=== PATIENT | male | born 1960 | race African-American/Black ===

== ENCOUNTER 2019-09-12 21:53 | Inpatient (IN) | payer MEDICAID ==
[~2019-09-12] VITALS: Ht 193 cm; Wt 75.7 kg
[2019-09-12] MEDS ORDERED: NITROGLYCERIN OINT 1GM/INCH UDPKT TD ONE (23:15)
[2019-09-12 23:52] LABS: BASOPHILS % 0.4 % (0.0-2.0); HEMATOCRIT. 41.4 % (42.0-52.0); HEMOGLOBIN. 13.7 g/dL (14.0-18.0); LYMPHOCYTES % 24.6 % (20.0-50.0); MEAN CORPUSCULAR VOLUME 102.8 fL (80.0-94.0); MEAN PLATELET VOLUME 9.4 fl (7.4-10.4); MONOCYTES % 5.1 % (2.0-8.0); NEUTROPHILS % 69.9 % (40.0-76.0); PLATELET 122 x1000/uL (130-400); RED BLOOD CELL COUNT 4.03 mill/uL (4.7-6.1); RED CELL DISTRIBUTION WIDTH 16.3 % (11.6-14.6)
[2019-09-12 23:55] LABS: CHLORIDE 105 mEq/L (98-107)
[2019-09-13] MEDS ORDERED: FUROSEMIDE 40MG/4ML VIAL IVP ONE (04:45)
[2019-09-13] MEDS ORDERED: ONDANSETRON HCL 4MG/2ML INJ IV PRN (08:30)
[2019-09-13] MEDS: ASPIRIN 81MG TABLET PO SCH (09:13)
[2019-09-13] MEDS: FUROSEMIDE 40MG/4ML VIAL IVP SCH (11:02)
[2019-09-13 12:28] LABS: HEPATITIS B SURFACE ANTIGEN NEGATIVE
[2019-09-13 12:56] LABS: HEPATITIS A AB IGM NEGATIVE (NEGATIVE)
[2019-09-13 13:35] LABS: CANNABINOID URINE SCREEN PRESUMTIVE POSITIVE (NEGATIVE)
[2019-09-13 13:36] LABS: *AMPHETAMINES SCREEN URINE NEGATIVE (NEGATIVE)
[2019-09-13 13:40] LABS: METHADONE URINE SCREEN NEGATIVE (NEGATIVE); OPIATES URINE SCREEN NEGATIVE (NEGATIVE); PHENCYCLIDINE URINE SCREEN NEGATIVE (NEGATIVE)
[2019-09-13 13:42] LABS: *BENZODIAZEPINES SCREEN URINE NEGATIVE (NEGATIVE)
[2019-09-13 13:44] LABS: *BARBITURATES SCREEN URINE NEGATIVE (NEGATIVE); *COCAINE SCREEN URINE PRESUMTIVE POSITIVE (NEGATIVE)
[2019-09-13 16:30] VITALS: BP 126/81
[2019-09-13] MEDS: LOSARTAN POTASSIUM 50 MG TABLET PO SCH (17:00)
[2019-09-13 20:00] VITALS: BP 90/60
[2019-09-13] MEDS: ENOXAPARIN 40MG/0.4ML SYR SUBCUT SCH (21:43)
[2019-09-13] MEDS ORDERED: IOHEXOL-350 100 ML BOTTLE ONE (22:46)
[2019-09-14] VITALS (7 sets, daily range): BP systolic 93–136; BP diastolic 49–76
[2019-09-14] MEDS: LEVOTHYROXINE SODIUM 50MCG TABLET PO SCH (06:38)
[2019-09-14 08:27] LABS: BASOPHILS % 0.6 % (0.0-2.0); EOSINOPHILS % 0.1 % (0.0-5.0); HEMATOCRIT. 39.5 % (42.0-52.0); HEMOGLOBIN. 13.1 g/dL (14.0-18.0); LYMPHOCYTES % 20.6 % (20.0-50.0); MEAN PLATELET VOLUME 9.9 fl (7.4-10.4); MONOCYTES % 8.1 % (2.0-8.0); NEUTROPHILS % 70.6 % (40.0-76.0); PLATELET 105 x1000/uL (130-400); RED BLOOD CELL COUNT 3.84 mill/uL (4.7-6.1); RED CELL DISTRIBUTION WIDTH 16.5 % (11.6-14.6)
[2019-09-14 08:35] LABS: CHLORIDE 102 mEq/L (98-107)
[2019-09-14] MEDS: ASPIRIN 81MG TABLET PO SCH (09:36)
[2019-09-14] MEDS: LOSARTAN POTASSIUM 50 MG TABLET PO SCH (09:36)
[2019-09-14] MEDS: FUROSEMIDE 40MG/4ML VIAL IVP SCH ×2 (09:36→17:00)
[2019-09-14] MEDS: IPRATROPIUM/ALBUTEROL 0.5-3(2.5)MG/3ML NEB HHN SCH ×2 (16:00→20:05)
[2019-09-14] MEDS: ENOXAPARIN 40MG/0.4ML SYR SUBCUT SCH (20:57)
[2019-09-15] VITALS: BP 120/98
[2019-09-15] MEDS: IPRATROPIUM/ALBUTEROL 0.5-3(2.5)MG/3ML NEB HHN SCH ×6 (00:07→20:38)
[2019-09-15] MEDS ORDERED: IPRATROPIUM/ALBUTEROL 0.5-3(2.5)MG/3ML NEB HHN PRN (01:45)
[2019-09-15 02:44] LABS: BG BASE EXCESS 0.9 mmol/L (-2.0-2.0); BG CARBOXYHEMOGLOBIN 0.3 % (0.5-1.5); BG DEOXYHEMOGLOBIN 17.8 % (0.0-5.0); BG FRACTION INSPIRED OXYGEN 21; BG HCO3 ACT 25.8 mmol/L (22.0-26.0); BG METHEMOGLOBIN 0.2 % (0.0-1.5); BG OXYGEN SATURATION 82.1 % (92.0-98.5); BG OXYHEMOGLOBIN 81.7 % (94.0-97.0); BG PCO2 42.2 mmHg (35.0-45.0); BG PH 7.404 (7.350-7.450); BG PO2 52.2 mmHg (75.0-100.0); BG SAMPLE SITE RIGHT RADIAL; BG TOTAL HEMOGLOBIN 13.6 g/dL (12.0-18.0); BG VENT MODE ROOM AIR
[2019-09-15 04:00] VITALS: BP 108/68
[2019-09-15] MEDS: LEVOTHYROXINE SODIUM 50MCG TABLET PO SCH (05:11)
[2019-09-15 06:06] LABS: CHLORIDE 100 mEq/L (98-107)
[2019-09-15 06:42] LABS: BASOPHILS % 0.3 % (0.0-2.0); EOSINOPHILS % 0.1 % (0.0-5.0); HEMATOCRIT. 38.1 % (42.0-52.0); HEMOGLOBIN. 12.8 g/dL (14.0-18.0); LYMPHOCYTES % 15.6 % (20.0-50.0); MEAN CORPUSCULAR HEMOGLOBIN 33.9 pg (28.0-32.0); MEAN CORPUSCULAR VOLUME 101.3 fL (80.0-94.0); MEAN PLATELET VOLUME 10.5 fl (7.4-10.4); MONOCYTES % 7.5 % (2.0-8.0); NEUTROPHILS % 76.5 % (40.0-76.0); PLATELET 126 x1000/uL (130-400); RED BLOOD CELL COUNT 3.76 mill/uL (4.7-6.1); RED CELL DISTRIBUTION WIDTH 16.3 % (11.6-14.6)
[2019-09-15] MEDS: LOSARTAN POTASSIUM 25 MG TABLET PO SCH (09:00)
[2019-09-15] MEDS: FUROSEMIDE 40MG/4ML VIAL IVP SCH ×2 (09:03→17:00)
[2019-09-15] MEDS: ACETAMINOPHEN 325MG TABLET PO PRN (09:03)
[2019-09-15] MEDS: ASPIRIN 81MG TABLET PO SCH (09:03)
[2019-09-15 10:25] VITALS: BP 109/72
[2019-09-15 12:00] VITALS: BP 104/70
[2019-09-15 16:39] VITALS: BP 114/68
[2019-09-15 20:00] VITALS: BP 110/78
[2019-09-15] MEDS: ENOXAPARIN 40MG/0.4ML SYR SUBCUT SCH (21:24)
[2019-09-16] VITALS: BP 118/64
[2019-09-16] MEDS: IPRATROPIUM/ALBUTEROL 0.5-3(2.5)MG/3ML NEB HHN SCH ×4 (01:34→22:39)
[2019-09-16 04:00] VITALS: BP 124/72
[2019-09-16] MEDS: LEVOTHYROXINE SODIUM 50MCG TABLET PO SCH (04:07)
[2019-09-16 08:00] VITALS: BP 103/75
[2019-09-16] MEDS: FUROSEMIDE 40MG/4ML VIAL IVP SCH ×2 (09:00→09:21)
[2019-09-16] MEDS: LOSARTAN POTASSIUM 25 MG TABLET PO SCH (09:00)
[2019-09-16] MEDS: ASPIRIN 81MG TABLET PO SCH (09:21)
[2019-09-16 12:00] VITALS: BP 122/74
[2019-09-16 16:00] VITALS: BP 126/86
[2019-09-16 20:00] VITALS: BP 120/88
[2019-09-16] MEDS: ENOXAPARIN 40MG/0.4ML SYR SUBCUT SCH (20:10)
[2019-09-16] MEDS: FUROSEMIDE 40MG TABLET PO SCH (20:11)
[2019-09-16] MEDS: LORAZEPAM 2MG/ML CPJ IV PRN (21:35)
[2019-09-16] MEDS: BUDESONIDE 0.5MG/2ML NEB HHN SCH (22:39)
[2019-09-16] MEDS ORDERED: MORPHINE SULFATE 2 MG/ML CPJ (NOT FOR IM USE) IV PRN (22:45)
[2019-09-17] VITALS: BP 130/85
[2019-09-17] MEDS: IPRATROPIUM/ALBUTEROL 0.5-3(2.5)MG/3ML NEB HHN SCH ×7 (00:26→21:44)
[2019-09-17 04:00] VITALS: BP 120/80
[2019-09-17] MEDS: LORAZEPAM 2MG/ML CPJ IV PRN (06:00)
[2019-09-17 08:29] VITALS: BP 118/84
[2019-09-17] MEDS: BUDESONIDE 0.5MG/2ML NEB HHN SCH ×3 (08:30→21:44)
[2019-09-17] MEDS: LOSARTAN POTASSIUM 25 MG TABLET PO SCH (08:32)
[2019-09-17] MEDS: FUROSEMIDE 40MG TABLET PO SCH ×2 (08:32→21:23)
[2019-09-17] MEDS: LEVOTHYROXINE SODIUM 50MCG TABLET PO SCH (08:32)
[2019-09-17] MEDS: ASPIRIN 81MG TABLET PO SCH (08:32)
[2019-09-17 12:30] VITALS: BP 122/84
[2019-09-17 16:00] VITALS: BP 119/81
[2019-09-17 20:00] VITALS: BP 115/82
[2019-09-17] MEDS: ENOXAPARIN 40MG/0.4ML SYR SUBCUT SCH (21:23)
[2019-09-17] MEDS ORDERED: LORAZEPAM 2MG/ML CPJ IV PRN (21:45)
[2019-09-18] VITALS: BP_SYST 105; BP_SYST 120; BP_DIAS 65; BP_DIAS 80
[2019-09-18] MEDS: IPRATROPIUM/ALBUTEROL 0.5-3(2.5)MG/3ML NEB HHN SCH ×5 (01:40→20:25)
[2019-09-18 04:00] VITALS: BP 120/75
[2019-09-18 07:14] LABS: BASOPHILS % 0.3 % (0.0-2.0); EOSINOPHILS % 0.2 % (0.0-5.0); HEMATOCRIT. 39.4 % (42.0-52.0); HEMOGLOBIN. 13.2 g/dL (14.0-18.0); LYMPHOCYTES % 12.1 % (20.0-50.0); MEAN CORPUSCULAR HEMOGLOBIN 33.8 pg (28.0-32.0); MEAN CORPUSCULAR VOLUME 100.8 fL (80.0-94.0); MEAN PLATELET VOLUME 10.6 fl (7.4-10.4); MONOCYTES % 11.7 % (2.0-8.0); NEUTROPHILS % 75.7 % (40.0-76.0); PLATELET 134 x1000/uL (130-400); RED BLOOD CELL COUNT 3.91 mill/uL (4.7-6.1); RED CELL DISTRIBUTION WIDTH 16.6 % (11.6-14.6)
[2019-09-18] MEDS: LEVOTHYROXINE SODIUM 50MCG TABLET PO SCH (07:20)
[2019-09-18 08:00] VITALS: BP 113/67
[2019-09-18 08:02] LABS: CHLORIDE 104 mEq/L (98-107)
[2019-09-18] MEDS: FUROSEMIDE 40MG TABLET PO SCH ×2 (09:00→21:07)
[2019-09-18] MEDS: ASPIRIN 81MG TABLET PO SCH (09:00)
[2019-09-18] MEDS: LOSARTAN POTASSIUM 25 MG TABLET PO SCH (09:00)
[2019-09-18] MEDS: BUDESONIDE 0.5MG/2ML NEB HHN SCH ×2 (09:45→20:25)
[2019-09-18 12:00] VITALS: BP 109/81
[2019-09-18 13:34] LABS: BG CARBOXYHEMOGLOBIN 0.8 % (0.5-1.5); BG FRACTION INSPIRED OXYGEN 28; BG HCO3 ACT 26.5 mmol/L (22.0-26.0); BG OXYHEMOGLOBIN 95.2 % (94.0-97.0); BG PCO2 33.3 mmHg (35.0-45.0); BG PH 7.519 (7.350-7.450); BG PO2 84.4 mmHg (75.0-100.0); BG SAMPLE SITE RIGHT RADIAL; BG TOTAL HEMOGLOBIN 14.1 g/dL (12.0-18.0); BG VENT MODE NASAL CANNULA
[2019-09-18 16:00] VITALS: BP 113/80
[2019-09-18 20:00] VITALS: BP 118/83
[2019-09-18] MEDS: ENOXAPARIN 40MG/0.4ML SYR SUBCUT SCH (21:07)
[2019-09-18] MEDS: CARVEDILOL 6.25 MG TABLET PO SCH (21:12)
[2019-09-19] VITALS: BP 110/66
[2019-09-19] MEDS: IPRATROPIUM/ALBUTEROL 0.5-3(2.5)MG/3ML NEB HHN SCH ×6 (00:35→20:40)
[2019-09-19 04:30] VITALS: BP 107/70
[2019-09-19] MEDS: LEVOTHYROXINE SODIUM 50MCG TABLET PO SCH (06:18)
[2019-09-19 08:00] VITALS: BP 100/71
[2019-09-19] MEDS: LOSARTAN POTASSIUM 25 MG TABLET PO SCH (09:00)
[2019-09-19] MEDS: CARVEDILOL 6.25 MG TABLET PO SCH ×2 (09:00→21:00)
[2019-09-19] MEDS: BUDESONIDE 0.5MG/2ML NEB HHN SCH ×2 (09:18→20:39)
[2019-09-19] MEDS: FUROSEMIDE 40MG TABLET PO SCH ×2 (09:35→21:23)
[2019-09-19] MEDS: ASPIRIN 81MG TABLET PO SCH (09:35)
[2019-09-19 12:00] VITALS: BP 110/84
[2019-09-19] MEDS: RISPERIDONE 1MG TABLET PO SCH (12:44)
[2019-09-19 16:00] VITALS: BP 110/72
[2019-09-19 20:00] VITALS: BP 105/71
[2019-09-19] MEDS: ENOXAPARIN 40MG/0.4ML SYR SUBCUT SCH (21:24)
[2019-09-20] VITALS: BP 104/75
[2019-09-20] MEDS: IPRATROPIUM/ALBUTEROL 0.5-3(2.5)MG/3ML NEB HHN SCH ×6 (00:38→19:52)
[2019-09-20 04:00] VITALS: BP 106/85
[2019-09-20] MEDS: LEVOTHYROXINE SODIUM 50MCG TABLET PO SCH (06:39)
[2019-09-20 08:00] VITALS: BP 109/75
[2019-09-20] MEDS: CARVEDILOL 6.25 MG TABLET PO SCH ×3 (09:00→21:05)
[2019-09-20] MEDS: LOSARTAN POTASSIUM 25 MG TABLET PO SCH (09:00)
[2019-09-20] MEDS: ASPIRIN 81MG TABLET PO SCH (09:59)
[2019-09-20] MEDS: RISPERIDONE 1MG TABLET PO SCH ×3 (09:59→21:04)
[2019-09-20] MEDS: FUROSEMIDE 40MG TABLET PO SCH ×3 (09:59→21:04)
[2019-09-20 12:00] VITALS: BP 129/72
[2019-09-20] MEDS: ACETAMINOPHEN 325MG TABLET PO PRN (13:37)
[2019-09-20 16:00] VITALS: BP 164/55
[2019-09-20 20:00] VITALS: BP 113/88
[2019-09-20] MEDS: ENOXAPARIN 40MG/0.4ML SYR SUBCUT SCH (20:00)
[2019-09-21] VITALS: BP 96/65
[2019-09-21] MEDS: IPRATROPIUM/ALBUTEROL 0.5-3(2.5)MG/3ML NEB HHN SCH ×6 (00:08→19:47)
[2019-09-21 04:00] VITALS: BP 120/74
[2019-09-21] MEDS: LEVOTHYROXINE SODIUM 50MCG TABLET PO SCH (07:03)
[2019-09-21 07:19] LABS: CHLORIDE 104 mEq/L (98-107)
[2019-09-21 08:00] VITALS: BP 105/70
[2019-09-21] MEDS: LOSARTAN POTASSIUM 25 MG TABLET PO SCH (09:00)
[2019-09-21] MEDS: CARVEDILOL 6.25 MG TABLET PO SCH ×2 (09:00→21:00)
[2019-09-21] MEDS: RISPERIDONE 1MG TABLET PO SCH ×2 (09:55→20:56)
[2019-09-21] MEDS: ASPIRIN 81MG TABLET PO SCH (09:58)
[2019-09-21] MEDS ORDERED: POTASSIUM CHLORIDE INJ 40 MEQ in DEXT 5% WATER 250 ML IV SCH (11:00)
[2019-09-21 12:00] VITALS: BP 97/68
[2019-09-21] MEDS: FUROSEMIDE 40MG TABLET PO SCH ×2 (12:35→21:00)
[2019-09-21 16:00] VITALS: BP 103/63
[2019-09-21 20:00] VITALS: BP 97/77
[2019-09-21] MEDS: ENOXAPARIN 40MG/0.4ML SYR SUBCUT SCH (20:55)
[2019-09-22] VITALS: BP 105/86
[2019-09-22] MEDS: IPRATROPIUM/ALBUTEROL 0.5-3(2.5)MG/3ML NEB HHN SCH ×6 (00:06→20:17)
[2019-09-22 04:00] VITALS: BP 100/66
[2019-09-22] MEDS: LEVOTHYROXINE SODIUM 50MCG TABLET PO SCH (06:42)
[2019-09-22 07:01] LABS: CHLORIDE 101 mEq/L (98-107)
[2019-09-22 07:29] LABS: VITAMIN B12 SERUM >2000 pg/mL pg/mL (211-911)
[2019-09-22 08:00] VITALS: BP 103/74
[2019-09-22] MEDS: LOSARTAN POTASSIUM 25 MG TABLET PO SCH (08:45)
[2019-09-22] MEDS: CARVEDILOL 6.25 MG TABLET PO SCH ×2 (08:56→20:50)
[2019-09-22] MEDS: FUROSEMIDE 40MG TABLET PO SCH ×2 (08:57→20:50)
[2019-09-22] MEDS: THIAMINE HCL 100MG TABLET PO SCH (09:07)
[2019-09-22] MEDS: RISPERIDONE 1MG TABLET PO SCH ×2 (09:07→20:49)
[2019-09-22] MEDS: ASPIRIN 81MG TABLET PO SCH (09:07)
[2019-09-22] MEDS: POTASSIUM CHLORIDE 10MEQ TABLET SR PO SCH (09:11)
[2019-09-22 12:00] VITALS: BP 93/65
[2019-09-22 16:00] VITALS: BP 100/72
[2019-09-22 20:00] VITALS: BP 98/70
[2019-09-22] MEDS ORDERED: POTASSIUM CHLORIDE INJ 40 MEQ in DEXT 5% WATER 250 ML IV SCH (20:00)
[2019-09-22] MEDS: ENOXAPARIN 40MG/0.4ML SYR SUBCUT SCH (20:49)
[2019-09-23] VITALS: BP 103/73
[2019-09-23] MEDS: IPRATROPIUM/ALBUTEROL 0.5-3(2.5)MG/3ML NEB HHN SCH ×3 (00:35→20:00)
[2019-09-23 04:00] VITALS: BP 111/79
[2019-09-23 05:09] LABS: HIV SCREEN 4G Non Reactive (Non Reactive)
[2019-09-23] MEDS: LEVOTHYROXINE SODIUM 50MCG TABLET PO SCH (06:36)
[2019-09-23 08:00] VITALS: BP 102/65
[2019-09-23 08:45] LABS: CHLORIDE 101 mEq/L (98-107)
[2019-09-23] MEDS: CARVEDILOL 6.25 MG TABLET PO SCH ×2 (09:00→20:59)
[2019-09-23] MEDS: LOSARTAN POTASSIUM 25 MG TABLET PO SCH (09:00)
[2019-09-23] MEDS: ENOXAPARIN 40MG/0.4ML SYR SUBCUT SCH (09:52)
[2019-09-23] MEDS: THIAMINE HCL 100MG TABLET PO SCH (09:52)
[2019-09-23] MEDS: FUROSEMIDE 40MG TABLET PO SCH ×2 (09:53→20:58)
[2019-09-23] MEDS: RISPERIDONE 1MG TABLET PO SCH ×2 (09:53→20:58)
[2019-09-23] MEDS: ASPIRIN 81MG TABLET PO SCH (09:53)
[2019-09-23] MEDS: POTASSIUM CHLORIDE 10MEQ TABLET SR PO SCH (09:56)
[2019-09-23 12:00] VITALS: BP 98/77
[2019-09-23 16:00] VITALS: BP 98/69
[2019-09-23 20:00] VITALS: BP 125/77
[2019-09-24] VITALS: BP 104/58
[2019-09-24] MEDS: IPRATROPIUM/ALBUTEROL 0.5-3(2.5)MG/3ML NEB HHN SCH ×6 (00:25→22:00)
[2019-09-24 04:00] VITALS: BP 116/57
[2019-09-24] MEDS: LEVOTHYROXINE SODIUM 50MCG TABLET PO SCH (07:40)
[2019-09-24] MEDS: LOSARTAN POTASSIUM 25 MG TABLET PO SCH (09:00)
[2019-09-24] MEDS: CARVEDILOL 6.25 MG TABLET PO SCH ×2 (09:00→20:37)
[2019-09-24] MEDS: ASPIRIN 81MG TABLET PO SCH (11:09)
[2019-09-24] MEDS: RISPERIDONE 1MG TABLET PO SCH (11:09)
[2019-09-24] MEDS: THIAMINE HCL 100MG TABLET PO SCH (11:09)
[2019-09-24 12:00] VITALS: BP 91/73
[2019-09-24] MEDS: FUROSEMIDE 40MG TABLET PO SCH (15:00)
[2019-09-24 20:00] VITALS: BP 91/49
[2019-09-24] MEDS: RISPERIDONE 0.5MG TABLET PO SCH (20:38)
[2019-09-24] MEDS: ENOXAPARIN 40MG/0.4ML SYR SUBCUT SCH (20:38)
[2019-09-25] VITALS: BP 104/51
[2019-09-25] MEDS: IPRATROPIUM/ALBUTEROL 0.5-3(2.5)MG/3ML NEB HHN SCH ×5 (02:24→15:18)
[2019-09-25 04:00] VITALS: BP 120/84
[2019-09-25] MEDS: LEVOTHYROXINE SODIUM 50MCG TABLET PO SCH (06:26)
[2019-09-25 06:43] LABS: BASOPHILS % 0.2 % (0.0-2.0); HEMATOCRIT. 36.9 % (42.0-52.0); HEMOGLOBIN. 12.8 g/dL (14.0-18.0); LYMPHOCYTES % 8.8 % (20.0-50.0); MEAN CORPUSCULAR HEMOGLOBIN 34.5 pg (28.0-32.0); MEAN CORPUSCULAR VOLUME 99.2 fL (80.0-94.0); MEAN PLATELET VOLUME 11.5 fl (7.4-10.4); MONOCYTES % 5.2 % (2.0-8.0); NEUTROPHILS % 85.8 % (40.0-76.0); PLATELET 61 x1000/uL (130-400); RED BLOOD CELL COUNT 3.72 mill/uL (4.7-6.1); RED CELL DISTRIBUTION WIDTH 16.7 % (11.6-14.6)
[2019-09-25 07:17] LABS: CHLORIDE 100 mEq/L (98-107)
[2019-09-25 08:00] VITALS: BP 121/93
[2019-09-25] MEDS: LOSARTAN POTASSIUM 25 MG TABLET PO SCH (09:08)
[2019-09-25] MEDS: FUROSEMIDE 40MG TABLET PO SCH (09:08)
[2019-09-25] MEDS: ASPIRIN 81MG TABLET PO SCH (09:08)
[2019-09-25] MEDS: THIAMINE HCL 100MG TABLET PO SCH (09:08)
[2019-09-25] MEDS: CARVEDILOL 6.25 MG TABLET PO SCH ×2 (09:09→21:26)
[2019-09-25] MEDS: RISPERIDONE 0.5MG TABLET PO SCH ×2 (09:10→21:26)
[2019-09-25 12:00] VITALS: BP 83/93
[2019-09-25 16:00] VITALS: BP 91/59
[2019-09-25 20:00] VITALS: BP 116/68
[2019-09-26] VITALS (7 sets, daily range): BP systolic 71–120; BP diastolic 49–91
[2019-09-26] MEDS: LEVOTHYROXINE SODIUM 50MCG TABLET PO SCH (06:40)
[2019-09-26] MEDS: FUROSEMIDE 40MG TABLET PO SCH (08:26)
[2019-09-26] MEDS: RISPERIDONE 0.5MG TABLET PO SCH ×2 (08:26→21:31)
[2019-09-26] MEDS: THIAMINE HCL 100MG TABLET PO SCH (08:26)
[2019-09-26] MEDS: LOSARTAN POTASSIUM 25 MG TABLET PO SCH (08:27)
[2019-09-26] MEDS: CARVEDILOL 6.25 MG TABLET PO SCH ×2 (08:27→21:00)
[2019-09-26] MEDS: IPRATROPIUM/ALBUTEROL 0.5-3(2.5)MG/3ML NEB HHN SCH ×4 (10:00→21:02)
[2019-09-27] VITALS: BP 80/51
[2019-09-27] MEDS: IPRATROPIUM/ALBUTEROL 0.5-3(2.5)MG/3ML NEB HHN SCH ×4 (00:23→15:51)
[2019-09-27 04:00] VITALS: BP 90/53
[2019-09-27] MEDS: LEVOTHYROXINE SODIUM 50MCG TABLET PO SCH (06:22)
[2019-09-27 07:56] LABS: CHLORIDE 104 mEq/L (98-107)
[2019-09-27 08:00] VITALS: BP 76/45
[2019-09-27] MEDS: FUROSEMIDE 40MG TABLET PO SCH (09:00)
[2019-09-27] MEDS: LOSARTAN POTASSIUM 25 MG TABLET PO SCH (09:00)
[2019-09-27] MEDS: CARVEDILOL 6.25 MG TABLET PO SCH (09:00)
[2019-09-27] MEDS: THIAMINE HCL 100MG TABLET PO SCH (09:54)
[2019-09-27] MEDS: RISPERIDONE 0.5MG TABLET PO SCH ×2 (09:54→21:06)
[2019-09-27] MEDS ORDERED: POTASSIUM CHLORIDE 20MEQ TABLET SR PO SCH (11:00)
[2019-09-27] MEDS: MIDODRINE HCL 5MG TABLET PO SCH ×2 (11:27→17:12)
[2019-09-27 12:00] VITALS: BP 77/46
[2019-09-27] MEDS ORDERED: ALBUMIN HUMAN 12.5G/250ML (5%) IV NR (14:30)
[2019-09-27 16:00] VITALS: BP 80/34
[2019-09-27 20:00] VITALS: BP 75/45
[2019-09-28] VITALS (45 sets, daily range): BP systolic 70–127; BP diastolic 37–88
[2019-09-28] MEDS: LEVOTHYROXINE SODIUM 50MCG TABLET PO SCH (06:21)
[2019-09-28 06:39] LABS: HEMATOCRIT 38.1 % (42.0-52.0); MEAN CORPUSCULAR HEMOGLOBIN 34.2 pg (28.0-32.0); MEAN CORPUSCULAR VOLUME 100.3 fL (80.0-94.0); RED BLOOD CELL COUNT 3.79 mill/uL (4.7-6.1); RED CELL DISTRIBUTION WIDTH 17.4 % (11.6-14.6)
[2019-09-28 06:40] LABS: INR 2.3; PROTHROMBIN TIME 24.8 sec (9.6-11.0)
[2019-09-28 07:58] LABS: FOLIC ACID (FOLATE) SERUM 7.4 ng/mL (>5.38)
[2019-09-28 07:58] LABS: CHLORIDE 106 mEq/L (98-107)
[2019-09-28] MEDS: IPRATROPIUM/ALBUTEROL 0.5-3(2.5)MG/3ML NEB HHN SCH ×4 (09:48→21:50)
[2019-09-28] MEDS: FUROSEMIDE 40MG TABLET PO SCH (09:50)
[2019-09-28] MEDS: MIDODRINE HCL 5MG TABLET PO SCH (09:50)
[2019-09-28] MEDS: RISPERIDONE 0.5MG TABLET PO SCH (09:50)
[2019-09-28] MEDS: THIAMINE HCL 100MG TABLET PO SCH (09:50)
[2019-09-28 11:51] LABS: PLATELET 42 x1000/uL (130-400)
[2019-09-28] MEDS ORDERED: SODIUM CHLORIDE 0.9% 250 ML IV SCH (12:45)
[2019-09-28] MEDS ORDERED: MIDODRINE HCL 5MG TABLET PO SCH (13:00)
[2019-09-28] MEDS ORDERED: NOREPINEPHRINE 4MG/250ML PMX 250 ML IV PRN (13:00)
[2019-09-28] MEDS ORDERED: SODIUM CHLORIDE 0.9% 1,000 ML IV SCH (14:00)
[2019-09-28] MEDS ORDERED: NOREPINEPHRINE 4 MG in DEXTROSE 5% WATER 250 ML IV PRN (15:30)
[2019-09-28] MEDS ORDERED: LEVOFLOXACIN 500MG PREMIX 100 ML IV SCH (15:30)
[2019-09-28] MEDS ORDERED: DOPAMINE 400MG/250ML PREMIX 250 ML IV PRN (20:45)
[2019-09-28 22:41] LABS: BG BASE EXCESS -1.2 mmol/L (-2.0-2.0); BG CARBOXYHEMOGLOBIN 0.8 % (0.5-1.5); BG DEOXYHEMOGLOBIN 13.4 % (0.0-5.0); BG FRACTION INSPIRED OXYGEN 60; BG HCO3 ACT 27.1 mmol/L (22.0-26.0); BG METHEMOGLOBIN 0.1 % (0.0-1.5); BG OXYGEN SATURATION 86.5 % (92.0-98.5); BG OXYHEMOGLOBIN 85.7 % (94.0-97.0); BG PCO2 61.4 mmHg (35.0-45.0); BG PH 7.263 (7.350-7.450); BG PO2 64.4 mmHg (75.0-100.0); BG SAMPLE SITE RIGHT RADIAL; BG TOTAL HEMOGLOBIN 14.4 g/dL (12.0-18.0); BG VENT MODE MASK - SIMPLE
[2019-09-28] MEDS ORDERED: ACETAMINOPHEN 650MG/20.3ML UDC PO PRN (23:15)
[2019-09-28] MEDS ORDERED: IPRATROPIUM/ALBUTEROL 0.5-3(2.5)MG/3ML NEB HHN PRN (23:15)
[2019-09-28] MEDS ORDERED: SODIUM CHLORIDE 0.9% 100 ML IV ONE (23:15)
[2019-09-28] MEDS ORDERED: ONDANSETRON HCL 4MG/2ML INJ IV PRN (23:15)
[2019-09-28] MEDS: DOPAMINE 400MG/250ML PREMIX 250 ML IV PRN (23:29)
[2019-09-29] VITALS (101 sets, daily range): BP systolic 59–154; BP diastolic 27–91
[2019-09-29] MEDS ORDERED: NOREPINEPHRINE 4 MG in DEXT 5% WATER 246 ML IV PRN ×2
[2019-09-29] MEDS: SODIUM CHLORIDE 0.9% 1,000 ML IV SCH ×2 (00:07→00:30)
[2019-09-29 00:12] LABS: BG BASE EXCESS -0.6 mmol/L (-2.0-2.0); BG BILEVEL POS AIRWAY PRESSURE 15/5; BG CARBOXYHEMOGLOBIN 0.7 % (0.5-1.5); BG DEOXYHEMOGLOBIN 8.5 % (0.0-5.0); BG FRACTION INSPIRED OXYGEN 80; BG METHEMOGLOBIN 0.2 % (0.0-1.5); BG OXYGEN SATURATION 91.4 % (92.0-98.5); BG OXYHEMOGLOBIN 90.6 % (94.0-97.0); BG PCO2 56.1 mmHg (35.0-45.0); BG PO2 72.6 mmHg (75.0-100.0); BG SAMPLE SITE RIGHT FEMORAL; BG TOTAL HEMOGLOBIN 14.8 g/dL (12.0-18.0); BG VENT MODE MASK - BIPAP
[2019-09-29] MEDS: IPRATROPIUM/ALBUTEROL 0.5-3(2.5)MG/3ML NEB HHN SCH ×5 (00:51→20:49)
[2019-09-29] MEDS: NOREPINEPHRINE 16 MG in DEXT 5% WATER 234 ML IV PRN ×3 (01:49→22:31)
[2019-09-29] MEDS: DOPAMINE 400MG/250ML PREMIX 250 ML IV PRN ×4 (03:02→20:17)
[2019-09-29 06:27] LABS: HEMATOCRIT. 46.1 % (42.0-52.0); HEMOGLOBIN. 15.9 g/dL (14.0-18.0); MEAN CORPUSCULAR HEMOGLOBIN 34.7 pg (28.0-32.0); MEAN CORPUSCULAR VOLUME 100.6 fL (80.0-94.0); RED BLOOD CELL COUNT 4.58 mill/uL (4.7-6.1); RED CELL DISTRIBUTION WIDTH 17.8 % (11.6-14.6)
[2019-09-29] MEDS: LEVOTHYROXINE SODIUM 50MCG TABLET PO SCH (06:36)
[2019-09-29 08:06] LABS: CHLORIDE 107 mEq/L (98-107); INR 2.2; PROTHROMBIN TIME 23.2 sec (9.6-11.0)
[2019-09-29] MEDS: MIDODRINE HCL 5MG TABLET PO SCH ×3 (09:00→22:37)
[2019-09-29] MEDS: THIAMINE HCL 100MG TABLET PO SCH (09:00)
[2019-09-29 09:20] LABS: NUCLEATED RED BLOOD CELLS 12 /100 WBC
[2019-09-29 09:21] LABS: PLATELET ESTIMATE DECREASED
[2019-09-29] MEDS ORDERED: SODIUM CHLORIDE 0.9% 1,000 ML IV SCH ×3 (10:00)
[2019-09-29 10:38] LABS: BG BASE EXCESS -3.3 mmol/L (-2.0-2.0); BG CARBOXYHEMOGLOBIN 0.5 % (0.5-1.5); BG DEOXYHEMOGLOBIN 5.1 % (0.0-5.0); BG FRACTION INSPIRED OXYGEN 80; BG METHEMOGLOBIN 0.3 % (0.0-1.5); BG OXYGEN SATURATION 94.9 % (92.0-98.5); BG OXYHEMOGLOBIN 94.1 % (94.0-97.0); BG PCO2 35.9 mmHg (35.0-45.0); BG PH 7.386 (7.350-7.450); BG SAMPLE SITE LEFT RADIAL; BG TOTAL HEMOGLOBIN 14.8 g/dL (12.0-18.0); BG VENT MODE MASK - BIPAP; BG VENT RATE 18 set
[2019-09-29] MEDS: PHENYLEPHRINE 40 MG in DEXT 5% WATER 246 ML IV PRN ×2 (11:12→17:02)
[2019-09-29] MEDS: CEFEPIME 1,000 MG in DEXTROSE 5% WATER 50 ML IV SCH ×2 (11:12→21:35)
[2019-09-29] MEDS: METRONIDAZOLE 500 MG PREMIX 100 ML IV SCH ×2 (12:33→20:24)
[2019-09-29] MEDS ORDERED: ETOMIDATE 2MG/ML 10ML VIAL IV ONE (13:15)
[2019-09-29] MEDS ORDERED: VECURONIUM BROMIDE 10 MG/VIAL IV ONE (13:15)
[2019-09-29] MEDS: FENTANYL CITRATE/PF 1,000 MCG in SODIUM CHLORIDE 0.9% 80 ML IV PRN (13:41)
[2019-09-29] MEDS: MIDAZOLAM HCL 50 MG in DEXTROSE 5% WATER 40 ML IV PRN (13:44)
[2019-09-29] MEDS ORDERED: LEVOFLOXACIN 500MG PREMIX 100 ML IV SCH (14:00)
[2019-09-29 15:01] LABS: BG BASE EXCESS -6.8 mmol/L (-2.0-2.0); BG CARBOXYHEMOGLOBIN 0.8 % (0.5-1.5); BG DEOXYHEMOGLOBIN 18.5 % (0.0-5.0); BG FRACTION INSPIRED OXYGEN 70; BG HCO3 ACT 20.5 mmol/L (22.0-26.0); BG METHEMOGLOBIN 0.2 % (0.0-1.5); BG OXYGEN SATURATION 81.3 % (92.0-98.5); BG OXYHEMOGLOBIN 80.5 % (94.0-97.0); BG PCO2 48.1 mmHg (35.0-45.0); BG PH 7.248 (7.350-7.450); BG PO2 53.3 mmHg (75.0-100.0); BG SAMPLE SITE LEFT FEMORAL; BG TIDAL VOLUME(mL) 500 mL; BG TOTAL HEMOGLOBIN 14.3 g/dL (12.0-18.0); BG VENT MODE VENT - A/C; BG VENT RATE 14 set
[2019-09-29] MEDS ORDERED: DOXYCYCLINE 100 MG in DEXT 5% WATER 100 ML IV SCH (16:00)
[2019-09-29] MEDS: DOXYCYCLINE HYCLATE 100MG CAPSULE PO SCH ×2 (16:19→22:41)
[2019-09-29 18:01] LABS: BG BASE EXCESS -3.5 mmol/L (-2.0-2.0); BG CARBOXYHEMOGLOBIN 0.7 % (0.5-1.5); BG DEOXYHEMOGLOBIN 12.6 % (0.0-5.0); BG FRACTION INSPIRED OXYGEN 100; BG METHEMOGLOBIN 0.2 % (0.0-1.5); BG OXYGEN SATURATION 87.3 % (92.0-98.5); BG OXYHEMOGLOBIN 86.5 % (94.0-97.0); BG PCO2 46.6 mmHg (35.0-45.0); BG PH 7.311 (7.350-7.450); BG PO2 60.1 mmHg (75.0-100.0); BG SAMPLE SITE LEFT RADIAL; BG TIDAL VOLUME(mL) 500 mL; BG TOTAL HEMOGLOBIN 14.6 g/dL (12.0-18.0); BG VENT MODE VENT - A/C; BG VENT RATE 20 set
[2019-09-29 18:15] LABS: CLARITY URINE TURBID (CLEAR); COLOR URINE DARK YELLOW (YELLOW); KETONES URINE NEGATIVE (NEGATIVE); LEUKOCYTE ESTERASE URINE 2+ (NEGATIVE); NITRITE URINE POSITIVE (NEGATIVE); OCCULT BLOOD URINE 3+ (NEGATIVE); PROTEIN URINE 2+ (NEGATIVE); SPECIFIC GRAVITY URINE 1.015 (1.005-1.030)
[2019-09-29] MEDS: VASOPRESSIN 10 UNIT in SODIUM CHLORIDE 0.9% 99.5 ML IV PRN ×2 (19:55→23:19)
[2019-09-29] MEDS: PHENYLEPHRINE 80 MG in DEXT 5% WATER 492 ML IV PRN (20:36)
[2019-09-29] MEDS ORDERED: NOREPINEPHRINE 32 MG in DEXT 5% WATER 468 ML IV PRN (20:38)
[2019-09-30] VITALS (98 sets, daily range): BP systolic 58–134; BP diastolic 24–77
[2019-09-30] MEDS: ACETYLCYSTEINE 100MG/ML 10% VIAL 4ML INH SCH ×3 (00:21→16:00)
[2019-09-30] MEDS: IPRATROPIUM/ALBUTEROL 0.5-3(2.5)MG/3ML NEB HHN SCH ×7 (00:21→21:00)
[2019-09-30] MEDS: DOPAMINE 400MG/250ML PREMIX 250 ML IV PRN ×4 (01:57→20:45)
[2019-09-30] MEDS: VASOPRESSIN 10 UNIT in SODIUM CHLORIDE 0.9% 99.5 ML IV PRN ×5 (02:14→22:04)
[2019-09-30] MEDS: METRONIDAZOLE 500 MG PREMIX 100 ML IV SCH ×3 (03:28→20:19)
[2019-09-30] MEDS: MIDODRINE HCL 5MG TABLET PO SCH ×3 (05:28→22:07)
[2019-09-30] MEDS: PHENYLEPHRINE 80 MG in DEXT 5% WATER 492 ML IV PRN ×3 (05:28→20:47)
[2019-09-30 06:35] LABS: HEMATOCRIT. 36.7 % (42.0-52.0); HEMOGLOBIN. 12.1 g/dL (14.0-18.0); MEAN CORPUSCULAR HEMOGLOBIN 33.8 pg (28.0-32.0); MEAN CORPUSCULAR VOLUME 102.7 fL (80.0-94.0); MEAN PLATELET VOLUME 11.6 fl (7.4-10.4); RED BLOOD CELL COUNT 3.57 mill/uL (4.7-6.1); RED CELL DISTRIBUTION WIDTH 17.7 % (11.6-14.6)
[2019-09-30 06:41] LABS: CHLORIDE 93 mEq/L (98-107)
[2019-09-30 06:42] LABS: INR 2.3; PROTHROMBIN TIME 24.9 sec (9.6-11.0)
[2019-09-30] MEDS: NOREPINEPHRINE 16 MG in DEXT 5% WATER 234 ML IV PRN (07:37)
[2019-09-30] MEDS ORDERED: BLOOD SUGAR DIAGNOSTIC STRIP TEST SCH (07:45)
[2019-09-30] MEDS: INSULIN LISPRO 100 UNITS/ML SUBCUT SCH ×4 (08:00→21:00)
[2019-09-30 08:14] LABS: NUCLEATED RED BLOOD CELLS 19 /100 WBC
[2019-09-30 08:15] LABS: PLATELET ESTIMATE MARKEDLY DECREASED
[2019-09-30] MEDS: PANTOPRAZOLE SODIUM 40 MG/VIAL IV SCH (08:15)
[2019-09-30] MEDS: CEFEPIME 1,000 MG in DEXTROSE 5% WATER 50 ML IV SCH ×2 (08:15→20:19)
[2019-09-30] MEDS: THIAMINE HCL 100MG TABLET PO SCH (08:15)
[2019-09-30] MEDS: DOXYCYCLINE HYCLATE 100MG CAPSULE PO SCH (08:15)
[2019-09-30] MEDS: LEVOTHYROXINE SODIUM 50MCG TABLET PO SCH (08:15)
[2019-09-30 08:16] LABS: PLATELET 28 x1000/uL (130-400)
[2019-09-30 08:32] LABS: BG CARBOXYHEMOGLOBIN 0.7 % (0.5-1.5); BG DEOXYHEMOGLOBIN 14.9 % (0.0-5.0); BG FRACTION INSPIRED OXYGEN 100; BG HCO3 ACT 21.2 mmol/L (22.0-26.0); BG OXYHEMOGLOBIN 84.4 % (94.0-97.0); BG PCO2 43.4 mmHg (35.0-45.0); BG PH 7.306 (7.350-7.450); BG SAMPLE SITE LEFT BRACHIAL; BG TIDAL VOLUME(mL) 500 mL; BG TOTAL HEMOGLOBIN 13.6 g/dL (12.0-18.0); BG VENT MODE VENT - A/C; BG VENT RATE 22 set
[2019-09-30] MEDS: BLOOD SUGAR DIAGNOSTIC STRIP TEST SCH ×4 (08:53→21:53)
[2019-09-30] MEDS: SODIUM CHLORIDE 0.9% 1,000 ML IV SCH (12:35)
[2019-09-30] MEDS: MIDAZOLAM HCL 50 MG in DEXTROSE 5% WATER 40 ML IV PRN (13:45)
[2019-09-30] MEDS ORDERED: VANCOMYCIN 1500MG in DEXTROSE 5% WATER 250ML IV NR (16:00)
[2019-09-30] MEDS: NOREPINEPHRINE 32 MG in DEXT 5% WATER 468 ML IV PRN (17:12)
[2019-09-30] MEDS ORDERED: PHYTONADIONE 10 MG in DEXTROSE 5% WATER 49 ML IV NR (19:00)
[2019-10-01] VITALS (94 sets, daily range): BP systolic 81–135; BP diastolic 38–79
[2019-10-01] MEDS: ACETYLCYSTEINE 100MG/ML 10% VIAL 4ML INH SCH ×3 (00:42→14:25)
[2019-10-01] MEDS: IPRATROPIUM/ALBUTEROL 0.5-3(2.5)MG/3ML NEB HHN SCH ×6 (00:42→20:22)
[2019-10-01] MEDS: VASOPRESSIN 10 UNIT in SODIUM CHLORIDE 0.9% 99.5 ML IV PRN ×5 (02:08→20:58)
[2019-10-01] MEDS: DOPAMINE 400MG/250ML PREMIX 250 ML IV PRN ×4 (02:08→20:09)
[2019-10-01] MEDS: PHENYLEPHRINE 80 MG in DEXT 5% WATER 492 ML IV PRN (04:14)
[2019-10-01] MEDS: METRONIDAZOLE 500 MG PREMIX 100 ML IV SCH ×3 (04:14→20:19)
[2019-10-01] MEDS: MIDODRINE HCL 5MG TABLET PO SCH ×3 (05:13→21:27)
[2019-10-01] MEDS: FENTANYL CITRATE/PF 1,000 MCG in SODIUM CHLORIDE 0.9% 80 ML IV PRN (05:49)
[2019-10-01] MEDS ORDERED: VANCOMYCIN 750 MG PREMIX 150 ML IV SCH (06:00)
[2019-10-01 07:28] LABS: HEMATOCRIT. 33.7 % (42.0-52.0); MEAN CORPUSCULAR HEMOGLOBIN 33.6 pg (28.0-32.0); MEAN CORPUSCULAR VOLUME 102.9 fL (80.0-94.0); MEAN PLATELET VOLUME 10.7 fl (7.4-10.4); RED BLOOD CELL COUNT 3.27 mill/uL (4.7-6.1); RED CELL DISTRIBUTION WIDTH 18.6 % (11.6-14.6)
[2019-10-01 07:29] LABS: CHLORIDE 86 mEq/L (98-107); INR 2.3; PROTHROMBIN TIME 24.9 sec (9.6-11.0)
[2019-10-01] MEDS: BLOOD SUGAR DIAGNOSTIC STRIP TEST SCH ×4 (08:22→20:57)
[2019-10-01] MEDS: SODIUM CHLORIDE 0.9% 1,000 ML IV SCH (08:25)
[2019-10-01] MEDS: CEFEPIME 1,000 MG in DEXTROSE 5% WATER 50 ML IV SCH ×2 (08:25→20:59)
[2019-10-01] MEDS: PANTOPRAZOLE SODIUM 40 MG/VIAL IV SCH (08:31)
[2019-10-01] MEDS: THIAMINE HCL 100MG TABLET PO SCH (08:31)
[2019-10-01] MEDS: LEVOTHYROXINE SODIUM 50MCG TABLET PO SCH (08:31)
[2019-10-01] MEDS: INSULIN LISPRO 100 UNITS/ML SUBCUT SCH ×4 (08:38→20:57)
[2019-10-01] MEDS ORDERED: SODIUM CHLORIDE 3% 300 ML IV NR (10:00)
[2019-10-01 10:17] LABS: BG BASE EXCESS -9.6 mmol/L (-2.0-2.0); BG CARBOXYHEMOGLOBIN 1.3 % (0.5-1.5); BG DEOXYHEMOGLOBIN 3.4 % (0.0-5.0); BG FRACTION INSPIRED OXYGEN 100; BG HCO3 ACT 18.1 mmol/L (22.0-26.0); BG METHEMOGLOBIN 0.3 % (0.0-1.5); BG OXYGEN SATURATION 96.5 % (92.0-98.5); BG PH 7.212 (7.350-7.450); BG PO2 89.8 mmHg (75.0-100.0); BG SAMPLE SITE LEFT BRACHIAL; BG TIDAL VOLUME(mL) 500 mL; BG VENT MODE VENT - A/C; BG VENT RATE 22 set
[2019-10-01] MEDS ORDERED: SODIUM CHLORIDE 0.9% IV PRN (10:45)
[2019-10-01] MEDS ORDERED: PHENYLEPHRINE IV PRN (10:45)
[2019-10-01] MEDS ORDERED: SODIUM BICARBONATE 8.4% 1 MEQ/ML 50ML SYR IV NR (11:45)
[2019-10-01] MEDS: NOREPINEPHRINE 32 MG in DEXT 5% WATER 468 ML IV PRN (11:52)
[2019-10-01] MEDS: PHENYLEPHRINE 80 MG in SODIUM CHLORIDE 0.9% 492 ML IV PRN ×2 (13:16→20:59)
[2019-10-01 13:18] LABS: NUCLEATED RED BLOOD CELLS 6 /100 WBC
[2019-10-01 13:19] LABS: PLATELET 27 x1000/uL (130-400); PLATELET ESTIMATE MARKEDLY DECREASED
[2019-10-01] MEDS: VANCOMYCIN 1 G PREMIX 200 ML IV SCH (18:04)
[2019-10-01] MEDS: DEXTROSE 50% WATER 50ML SYRINGE IV PRN (20:59)
[2019-10-02] VITALS (98 sets, daily range): BP systolic 78–128; BP diastolic 50–84
[2019-10-02] MEDS: ACETYLCYSTEINE 100MG/ML 10% VIAL 4ML INH SCH ×3 (00:11→16:04)
[2019-10-02] MEDS: IPRATROPIUM/ALBUTEROL 0.5-3(2.5)MG/3ML NEB HHN SCH ×6 (00:11→20:40)
[2019-10-02] MEDS: VASOPRESSIN 10 UNIT in SODIUM CHLORIDE 0.9% 99.5 ML IV PRN ×6 (01:26→23:59)
[2019-10-02] MEDS: DOPAMINE 400MG/250ML PREMIX 250 ML IV PRN (01:30)
[2019-10-02] MEDS: METRONIDAZOLE 500 MG PREMIX 100 ML IV SCH ×3 (03:27→19:46)
[2019-10-02] MEDS: SODIUM CHLORIDE 0.9% 1,000 ML IV SCH (03:28)
[2019-10-02] MEDS: NOREPINEPHRINE 32 MG in SODIUM CHLORIDE 0.9% 468 ML IV PRN ×2 (04:38→20:17)
[2019-10-02] MEDS: PHENYLEPHRINE 80 MG in SODIUM CHLORIDE 0.9% 492 ML IV PRN ×3 (04:38→20:17)
[2019-10-02] MEDS: VANCOMYCIN 1 G PREMIX 200 ML IV SCH (05:04)
[2019-10-02] MEDS: DOPAMINE 800MG PREMIX (DOUBLE) 250 ML IV PRN ×2 (06:10→15:40)
[2019-10-02] MEDS: LEVOTHYROXINE SODIUM 50MCG TABLET PO SCH (06:40)
[2019-10-02] MEDS: MIDODRINE HCL 5MG TABLET PO SCH ×3 (06:40→21:33)
[2019-10-02] MEDS: BLOOD SUGAR DIAGNOSTIC STRIP TEST SCH ×4 (07:20→21:24)
[2019-10-02] MEDS: INSULIN LISPRO 100 UNITS/ML SUBCUT SCH ×4 (07:21→21:00)
[2019-10-02 07:57] LABS: HEMATOCRIT. 34.8 % (42.0-52.0); HEMOGLOBIN. 11.8 g/dL (14.0-18.0); MEAN CORPUSCULAR VOLUME 100.2 fL (80.0-94.0); MEAN PLATELET VOLUME 9.9 fl (7.4-10.4); RED BLOOD CELL COUNT 3.47 mill/uL (4.7-6.1); RED CELL DISTRIBUTION WIDTH 17.8 % (11.6-14.6)
[2019-10-02 07:58] LABS: INR 1.8; PROTHROMBIN TIME 19.7 sec (9.6-11.0)
[2019-10-02 08:07] LABS: CHLORIDE 97 mEq/L (98-107)
[2019-10-02] MEDS: DEXTROSE 50% WATER 50ML SYRINGE IV PRN ×4 (09:06→21:32)
[2019-10-02] MEDS: THIAMINE HCL 100MG TABLET PO SCH (09:08)
[2019-10-02] MEDS: CEFEPIME 1,000 MG in DEXTROSE 5% WATER 50 ML IV SCH ×2 (09:08→21:33)
[2019-10-02 09:44] LABS: BG BASE EXCESS -8.8 mmol/L (-2.0-2.0); BG CARBOXYHEMOGLOBIN 0.7 % (0.5-1.5); BG DEOXYHEMOGLOBIN 5.1 % (0.0-5.0); BG FRACTION INSPIRED OXYGEN 100; BG HCO3 ACT 15.1 mmol/L (22.0-26.0); BG METHEMOGLOBIN 0.3 % (0.0-1.5); BG OXYGEN SATURATION 94.8 % (92.0-98.5); BG OXYHEMOGLOBIN 93.9 % (94.0-97.0); BG PCO2 27.1 mmHg (35.0-45.0); BG PH 7.363 (7.350-7.450); BG PO2 70.9 mmHg (75.0-100.0); BG SAMPLE SITE LEFT RADIAL; BG TIDAL VOLUME(mL) 500 mL; BG TOTAL HEMOGLOBIN 12.2 g/dL (12.0-18.0); BG VENT MODE VENT - A/C; BG VENT RATE 22 set
[2019-10-02] MEDS: MIDAZOLAM HCL 50 MG in DEXTROSE 5% WATER 40 ML IV PRN (10:02)
[2019-10-02] MEDS ORDERED: MICAFUNGIN 100 MG in SODIUM CHLORIDE 0.9% 100 ML IV SCH ×3 (15:15→16:15)
[2019-10-02] MEDS: MICAFUNGIN 100 MG in SODIUM CHLORIDE 0.9% 100 ML IV SCH (17:43)
[2019-10-02] MEDS: DEXT 10% WATER 1,000 ML IV SCH (20:16)
[2019-10-02 22:51] LABS: NUCLEATED RED BLOOD CELLS 7 /100 WBC
[2019-10-02 22:52] LABS: PLATELET ESTIMATE MARKEDLY DECREASED
[2019-10-02 22:53] LABS: PLATELET 21 x1000/uL (130-400)
[2019-10-03] VITALS (90 sets, daily range): BP systolic 64–106; BP diastolic 44–73
[2019-10-03] MEDS: SODIUM CHLORIDE 0.9% 1,000 ML IV SCH ×2 (00:33→20:30)
[2019-10-03] MEDS: ACETYLCYSTEINE 100MG/ML 10% VIAL 4ML INH SCH ×4 (00:38→20:22)
[2019-10-03] MEDS: IPRATROPIUM/ALBUTEROL 0.5-3(2.5)MG/3ML NEB HHN SCH ×6 (00:38→20:23)
[2019-10-03] MEDS: METRONIDAZOLE 500 MG PREMIX 100 ML IV SCH ×3 (03:25→21:21)
[2019-10-03] MEDS: PHENYLEPHRINE 80 MG in SODIUM CHLORIDE 0.9% 492 ML IV PRN ×3 (03:25→19:08)
[2019-10-03] MEDS: VASOPRESSIN 10 UNIT in SODIUM CHLORIDE 0.9% 99.5 ML IV PRN ×4 (04:46→21:28)
[2019-10-03] MEDS: MIDODRINE HCL 5MG TABLET PO SCH ×2 (05:05→13:34)
[2019-10-03] MEDS: VANCOMYCIN 1,000 MG in DEXT 5% WATER 250 ML IV SCH (06:01)
[2019-10-03] MEDS: LEVOTHYROXINE SODIUM 50MCG TABLET PO SCH (06:01)
[2019-10-03] MEDS: BLOOD SUGAR DIAGNOSTIC STRIP TEST SCH ×4 (07:23→21:20)
[2019-10-03] MEDS: INSULIN LISPRO 100 UNITS/ML SUBCUT SCH ×4 (07:41→21:00)
[2019-10-03] MEDS: CEFEPIME 1,000 MG in DEXTROSE 5% WATER 50 ML IV SCH ×2 (08:45→21:20)
[2019-10-03] MEDS: THIAMINE HCL 100MG TABLET PO SCH (08:58)
[2019-10-03] MEDS: DOPAMINE 800MG PREMIX (DOUBLE) 250 ML IV PRN ×2 (09:26)
[2019-10-03] MEDS: DEXTROSE 50% WATER 50ML SYRINGE IV PRN ×3 (11:46→21:12)
[2019-10-03] MEDS: DEXT 10% WATER 1,000 ML IV SCH (15:30)
[2019-10-03] MEDS: MICAFUNGIN 100 MG in SODIUM CHLORIDE 0.9% 100 ML IV SCH (18:38)
[2019-10-03] MEDS: DOPAMINE HCL 800 MG in DEXT 5% WATER 240 ML IV PRN (19:09)
[2019-10-04] VITALS (27 sets, daily range): BP systolic 59–87; BP diastolic 38–50
[2019-10-04] MEDS: IPRATROPIUM/ALBUTEROL 0.5-3(2.5)MG/3ML NEB HHN SCH ×3 (00:17→08:38)
[2019-10-04] MEDS: MIDODRINE HCL 5MG TABLET PO SCH ×2 (00:46→06:01)
[2019-10-04] MEDS: VASOPRESSIN 10 UNIT in SODIUM CHLORIDE 0.9% 99.5 ML IV PRN ×2 (01:49→06:11)
[2019-10-04] MEDS: DOPAMINE HCL 800 MG in DEXT 5% WATER 240 ML IV PRN (01:49)
[2019-10-04] MEDS: PHENYLEPHRINE 80 MG in SODIUM CHLORIDE 0.9% 492 ML IV PRN (01:50)
[2019-10-04] MEDS: METRONIDAZOLE 500 MG PREMIX 100 ML IV SCH (03:00)
[2019-10-04] MEDS: VANCOMYCIN 1,000 MG in DEXT 5% WATER 250 ML IV SCH (05:46)
[2019-10-04] MEDS: INSULIN LISPRO 100 UNITS/ML SUBCUT SCH (05:48)
[2019-10-04] MEDS: BLOOD SUGAR DIAGNOSTIC STRIP TEST SCH (05:48)
[2019-10-04] MEDS: LEVOTHYROXINE SODIUM 50MCG TABLET PO SCH (06:01)
[2019-10-04] MEDS: ACETYLCYSTEINE 100MG/ML 10% VIAL 4ML INH SCH (08:38)
[2019-10-04] MEDS: THIAMINE HCL 100MG TABLET PO SCH (08:51)
[2019-10-04] MEDS: CEFEPIME 1,000 MG in DEXTROSE 5% WATER 50 ML IV SCH (08:51)
== END 2019-10-04 09:16 | disposition expired | DRG 816 ==
LOC: ER 21:53 → 6WST 09-13 00:17 → EDBD 09-13 00:17 → EDBEDREQTM 09-13 00:19 → EDBEDREQDT 09-13 00:19 → EDBEDREQ 09-13 00:19 → ENRESERV 09-13 15:41 → 6WST 09-17 07:00 → 6EST 09-23 14:45 → 6WST 09-28 06:14 → 5EST 09-28 14:15
PROVIDERS: ADMIT Internal Medicine; ATTEND Internal Medicine
PROC: 5A09357 Assistance with Respiratory Ventilation, Less than 24 Consecutive Hours, Continuous Positive Airway Pressure (ICD-10-PCS; 2019-09-28)
PROC: 5A1955Z Respiratory Ventilation, Greater than 96 Consecutive Hours (ICD-10-PCS; principal; 2019-09-29)
PROC: 0BH17EZ Insertion of Endotracheal Airway into Trachea, Via Natural or Artificial Opening (ICD-10-PCS; 2019-09-29)
PROC: B54MZZA Ultrasonography of Right Upper Extremity Veins, Guidance (ICD-10-PCS; 2019-09-29)
PROC: 05HY33Z Insertion of Infusion Device into Upper Vein, Percutaneous Approach (ICD-10-PCS; 2019-09-29)
PROC: 5A12012 Performance of Cardiac Output, Single, Manual (ICD-10-PCS; 2019-10-04)
DX: T40.5X1A Poisoning by cocaine, accidental (unintentional), initial encounter (principal); A41.02 Sepsis due to Methicillin resistant Staphylococcus aureus; J96.00 Acute respiratory failure, unspecified whether with hypoxia or hypercapnia; J69.0 Pneumonitis due to inhalation of food and vomit; R65.21 Severe sepsis with septic shock; E43 Unspecified severe protein-calorie malnutrition; G93.40 Encephalopathy, unspecified; I50.43 Acute on chronic combined systolic (congestive) and diastolic (congestive) heart failure; D68.9 Coagulation defect, unspecified; E87.1 Hypo-osmolality and hyponatremia; E87.2 Acidosis; S52.551A Other extraarticular fracture of lower end of right radius, initial encounter for closed fracture; D69.6 Thrombocytopenia, unspecified; I27.20 Pulmonary hypertension, unspecified; R07.89 Other chest pain; I11.0 Hypertensive heart disease with heart failure; E03.9 Hypothyroidism, unspecified; F12.10 Cannabis abuse, uncomplicated; I25.10 Atherosclerotic heart disease of native coronary artery without angina pectoris; I73.9 Peripheral vascular disease, unspecified; B18.2 Chronic viral hepatitis C; D53.9 Nutritional anemia, unspecified; E16.2 Hypoglycemia, unspecified; I42.9 Cardiomyopathy, unspecified; J43.9 Emphysema, unspecified; K82.8 Other specified diseases of gallbladder; N17.9 Acute kidney failure, unspecified; K76.1 Chronic passive congestion of liver; Z60.2 Problems related to living alone; I08.1 Rheumatic disorders of both mitral and tricuspid valves; W18.39XA Other fall on same level, initial encounter; Y93.89 Activity, other specified; Y99.8 Other external cause status; Z59.0 Homelessness; Z78.1 Physical restraint status; Z79.899 Other long term (current) drug therapy; Y92.89 Other specified places as the place of occurrence of the external cause; Z82.49 Family history of ischemic heart disease and other diseases of the circulatory system; Z68.20 Body mass index [BMI] 20.0-20.9, adult; I25.2 Old myocardial infarction; Z71.51 Drug abuse counseling and surveillance of drug abuser
CPT/HCPCS: 36415; 36600; 71045; 71275; 73100; 76700; 76937; 80048; 80053; 80061; 80076; 80202; 80305; 81003; 82140; 82248; 82375; 82533; 82607; 82746; 82805; 82947; 82962; 83036; 83735; 83880; 83930; 84145; 84295; 84443; 84484; 85025; 85027; 85379; 86705; 86709; 86803; 87070; 87077; 87106; 87340; 87389; 93005; 93306; 93970; 94003; 94640; 97162; 97530; 99285; C1725; C1769; C9113; J0692; J1265; J1650; J1815; J1940; J1956; J2060; J2248; J2250; J2370; J3010; J3370; J3430; J3480; J3490; J7030; J7040; J7050; J7060; J7608; J7626; P9041; Q9967